=== PATIENT | male | born 2000 | race Caucasian/White ===

== ENCOUNTER 2024-07-30 17:57 | Emergency (ER) | payer BC | END 2024-07-30 18:37 | disposition home or self-care (01) | LOC: MW.ED 17:57 | DX: J01.90 Acute sinusitis, unspecified (principal); Z79.51 Long term (current) use of inhaled steroids; Z79.52 Long term (current) use of systemic steroids; Z79.899 Other long term (current) drug therapy; Z75.8 Other problems related to medical facilities and other health care | CPT/HCPCS: 99283 ==